=== PATIENT | female | born 1985 | race Caucasian/White ===

== ENCOUNTER 2018-03-01 12:16 | Inpatient (IN) | payer BC ==
[2018-04-30] MEDS ORDERED: METHYLERGONOVINE 0.2 MG INJ IM (16:00)
[2018-04-30] MEDS ORDERED: LIDOCAINE 1% (MPF) 30 ML INJ INJ (16:00)
[2018-04-30] MEDS ORDERED: OXYTOCIN 30 UNITS/LR 500 ML IV ×3 (16:00)
[2018-04-30] MEDS ORDERED: BUTORPHANOL 1 MG INJ IV (16:00)
[2018-04-30] MEDS ORDERED: CARBOPROST 250 MCG INJ IM (16:00)
[2018-04-30] MEDS ORDERED: MISOPROSTOL 200 MCG TAB PR (16:00)
[2018-04-30] MEDS ORDERED: IBUPROFEN 600 MG TAB PO (16:00)
[2018-04-30] MEDS ORDERED: MISOPROSTOL 100 MCG TAB VAG (16:00)
[2018-04-30] MEDS ORDERED: OXYCODONE/ASPIRIN (4.88/325) TAB PO (16:00)
[2018-04-30 16:32] LABS: ADD MAN DIFF? NO
[2018-04-30 16:38] LABS: WHITE BLOOD COUNT 7.8 10^3/ul (4.8-10.8)
[2018-04-30 16:38] LABS: BASOPHILS % 0.3 % (0.0-2.0); EOSINOPHILS % 0.4 % (0.0-7.0); HEMATOCRIT 39.9 % (37.0-47.0); HEMOGLOBIN 12.9 g/dl (12.0-16.0); LYMPHOCYTES # 1.6 10^3/ul (0.8-2.9); LYMPHOCYTES % 20.2 % (15.0-51.0); MEAN CORPUSCULAR HEMOGLOBIN 27.5 pg (29.0-33.0); MEAN CORPUSCULAR HGB CONC 32.3 g/dl (32.0-37.0); MEAN CORPUSCULAR VOLUME 85.1 fl (82.0-101.0); MEAN PLATELET VOLUME 10.2 fl (7.4-10.4); MONOCYTE # 0.4 10^3/ul (0.3-0.9); MONOCYTES % 5.1 % (0.0-11.0); NEUTROPHIL # 5.7 10^3/ul (1.6-7.5); NEUTROPHILS % 73.5 % (39.0-77.0); PLATELET COUNT 121 10^3/UL (140-415); RED BLOOD COUNT 4.69 10^6/ul (4.20-5.40); RED CELL DISTRIBUTION WIDTH 14.4 % (11.5-14.5)
[2018-04-30] MEDS: LACTATED RINGER'S 1,000 ML IV (16:43)
[2018-04-30 16:56] LABS: INR 0.91; PARTIAL THROMBOPLASTIN TIME 25.4 Sec (23.0-35.0); PROTIME 12.3 Sec (11.9-14.9)
[2018-04-30 17:23] LABS: HEPATITIS B SURFACE ANTIGEN NEGATIVE (NEGATIVE)
[2018-04-30] MEDS: DEXTROSE 5%-LR 1,000 ML IV (19:25)
[2018-05-01] MEDS ORDERED: IBUPROFEN 600 MG TAB PO (05:30)
[2018-05-01] MEDS: MISOPROSTOL 50 MCG CAPSULE PO ×5 (06:50→22:33)
[2018-05-01] MEDS: LACTATED RINGER'S 1,000 ML IV ×2 (06:55→20:54)
[2018-05-01] MEDS: DEXTROSE 5%-LR 1,000 ML IV (06:58)
[2018-05-01 17:26] LABS: RAPID PLASMA REAGIN NONREACTIVE (NR)
[2018-05-02] MEDS: CALCIUM CARBONATE 500 MG CHEW TAB PO (01:37)
[2018-05-02] MEDS: LACTATED RINGER'S 1,000 ML IV ×5 (03:07→19:45)
[2018-05-02] MEDS ORDERED: FENTAnyl 2MCG/ML-ROPIV 0.2% 100 ML (03:43)
[2018-05-02] MEDS ORDERED: ONDANSETRON 4 MG INJ IV ×2 (04:00→19:30)
[2018-05-02] MEDS ORDERED: NALOXONE (0.4 MG/ML) INJ IV ×2 (04:00→19:30)
[2018-05-02] MEDS ORDERED: DIPHENHYDRAMINE 50 MG INJ IV ×2 (04:00→19:30)
[2018-05-02] MEDS ORDERED: FENTAnyl 2MCG/ML-ROPIV 0.2% 100 ML BAG EPI (04:00)
[2018-05-02] MEDS ORDERED: NALBUPHINE HCL (10 MG/1 ML) INJ IV (04:00)
[2018-05-02] MEDS: DEXTROSE 5%-LR 1,000 ML IV ×2 (06:42→14:43)
[2018-05-02] MEDS ORDERED: CEFAZOLIN 1 GM INJ (07:00)
[2018-05-02] MEDS ORDERED: OXYTOCIN 30 UNITS/LR 500 ML BAG IV (07:00)
[2018-05-02] MEDS: OXYTOCIN 30 UNITS/LR 500 ML IV ×2 (09:35→21:57)
[2018-05-02] MEDS ORDERED: LIDOCAINE 1% (MPF) 30 ML INJ (11:45)
[2018-05-02] MEDS ORDERED: METHYLERGONOVINE 0.2 MG INJ IM ×2 (17:30→23:00)
[2018-05-02] MEDS ORDERED: MISOPROSTOL 200 MCG TAB PR ×2 (17:30→23:00)
[2018-05-02] MEDS ORDERED: CARBOPROST 250 MCG INJ IM ×2 (17:30→23:00)
[2018-05-02] MEDS ORDERED: OXYTOCIN 30 UNITS/LR 500 ML IV ×3 (17:30→23:00)
[2018-05-02] MEDS ORDERED: PHENYLephrine (100 MCG/ML) 5ML SYG ×2 (18:11→18:50)
[2018-05-02] MEDS ORDERED: OXYTOCIN 10 UNIT INJ (18:32)
[2018-05-02] MEDS ORDERED: FENTAnyl 50 MCG/ML VIAL (18:49)
[2018-05-02] MEDS ORDERED: MIDAZOLAM 1 MG/ML 2 ML INJ (18:52)
[2018-05-02] MEDS ORDERED: morphine SULFATE/PF (10 MG/10 ML) INJ (18:56)
[2018-05-02] MEDS ORDERED: morphine 2 MG INJ IV (19:30)
[2018-05-02] MEDS: CEFAZOLIN 2 GM/50 ML (PMX) 50 ML IVPB ×2 (19:45→23:33)
[2018-05-02] MEDS: KETOROLAC 30 MG INJ IV (21:15)
[2018-05-03] MEDS: LACTATED RINGER'S 1,000 ML IV ×3 (00:30→15:28)
[2018-05-03] MEDS: KETOROLAC 30 MG INJ IV ×2 (05:52→14:04)
[2018-05-03 06:23] LABS: ADD MAN DIFF? NO
[2018-05-03] MEDS: CEFAZOLIN 2 GM/50 ML (PMX) 50 ML IVPB ×2 (06:25→14:03)
[2018-05-03 06:27] LABS: ABNORMAL IP MESSAGE 1; BASOPHILS % 0.2 % (0.0-2.0); HEMATOCRIT 34.9 % (37.0-47.0); HEMOGLOBIN 11.3 g/dl (12.0-16.0); LYMPHOCYTES % 7.8 % (15.0-51.0); MEAN CORPUSCULAR HEMOGLOBIN 27.8 pg (29.0-33.0); MEAN CORPUSCULAR HGB CONC 32.4 g/dl (32.0-37.0); MEAN PLATELET VOLUME 10.1 fl (7.4-10.4); MONOCYTE # 0.5 10^3/ul (0.3-0.9); MONOCYTES % 3.9 % (0.0-11.0); NEUTROPHIL # 11.2 10^3/ul (1.6-7.5); NEUTROPHILS % 87.6 % (39.0-77.0); PLATELET COUNT 97 10^3/UL (140-415); RED BLOOD COUNT 4.06 10^6/ul (4.20-5.40); RED CELL DISTRIBUTION WIDTH 14.7 % (11.5-14.5)
[2018-05-03 06:27] LABS: WHITE BLOOD COUNT 12.7 10^3/ul (4.8-10.8)
[2018-05-03] MEDS: OXYTOCIN 30 UNITS/LR 500 ML IV (06:27)
[2018-05-03 06:31] LABS: POSITIVE DIFF @See below
[2018-05-03] MEDS: SENNA/DOCUSATE NA (8.6MG/50MG) TAB PO ×2 (10:10→21:08)
[2018-05-03] MEDS: IBUPROFEN 600 MG TAB PO ×2 (20:00→23:23)
[2018-05-03] MEDS: OXYCODONE/ACETAMINOPHEN (5/325) TAB PO (21:09)
[2018-05-04] MEDS: IBUPROFEN 600 MG TAB PO ×4 (05:28→23:48)
[2018-05-04] MEDS: OXYCODONE/ACETAMINOPHEN (5/325) TAB PO ×3 (07:55→19:25)
[2018-05-04] MEDS: SENNA/DOCUSATE NA (8.6MG/50MG) TAB PO ×2 (07:56→21:30)
[2018-05-05] MEDS: IBUPROFEN 600 MG TAB PO ×3 (05:52→17:31)
[2018-05-05] MEDS: SENNA/DOCUSATE NA (8.6MG/50MG) TAB PO (08:41)
[2018-05-05] MEDS: DIPHTH/TET/ACEL PERTUSS (ADULT) 0.5 ML VIAL IM* (09:00)
[2018-05-05] MEDS: OXYCODONE/ACETAMINOPHEN (5/325) TAB PO (15:28)
== END 2018-05-05 18:43 | disposition home or self-care (01) | DRG 788 ==
LOC: OBT 12:16 → L-D 05-02 17:59 → PP1 05-02 22:15
PROVIDERS: Obstetrics & Gynecology
PROC: 10D00Z1 Extraction of Products of Conception, Low, Open Approach (ICD-10-PCS; principal; 2018-05-02)
PROC: 3E033VJ Introduction of Other Hormone into Peripheral Vein, Percutaneous Approach (ICD-10-PCS; 2018-05-02)
DX: O24.429 Gestational diabetes mellitus in childbirth, unspecified control (principal); O48.0 Post-term pregnancy; Z3A.40 40 weeks gestation of pregnancy; O76 Abnormality in fetal heart rate and rhythm complicating labor and delivery; Z37.0 Single live birth
CPT/HCPCS: 82962; 85025; 85610; 85730; 86592; 86885; 86900; 86901; 87340; 90715; 99464